=== PATIENT | female | born 1950 | race Caucasian/White ===

== ENCOUNTER 2023-03-21 19:32 | Emergency (ER) | payer OTHER, SELFPAY ==
--- NOTE | ~2023-03-21 | CT_ITS ---
EXAMINATION: CT brain wo con DATE: 03/21/2023 19:59 INDICATION: Status post fall. Head injury. TECHNIQUE: Computed tomography (CT) of the head was performed without intravenous contrast. The dose- length product was 605.33 mGy-cm. Automated exposure control and iterative reconstruction technique w ere employed. COMPARISON: None FINDINGS: Brain parenchymal volume is normal for age. There are scattered mild periventricular and garza bcortical white matter changes, most likely related to small vessel ischemic disease (microangiopathy ). No ventriculomegaly or midline shift. There is intracranial atherosclerosis. Paranasal sinuses and mastoids are pneumatized. No depressed skull fractures. No acute infarction, hemorrhage or mass. IMPRESSION: 1. No acute intracranial abnormality. Reviewed, dictated and finalized at location A.
--- NOTE | ~2023-03-21 | CT_ITS ---
EXAMINATION: CT cervical spine wo con DATE: 03/21/2023 19:59 INDICATION: Neck pain after fall TECHNIQUE: Computed tomography (CT) of the cervical spine was performed without intravenous contrast. The dose-length product was 577 mGy-cm. Automated exposure control and iterative reconstruction tech nique were employed. COMPARISON: None FINDINGS: There is straightening of cervical lordosis. There is disc narrowing at all cervical spine levels. Craniovertebral junction is normal. Odontoid process within normal limits. No evidence for pe rched facet. There is multilevel uncinate and facet hypertrophy. Lung apices are unremarkable. There is intracranial atherosclerosis. No significant paraspinal soft tissue abnormality. IMPRESSION: 1. No acute abnormality of the cervical spine. 2: Severe cervical spondylosis. Reviewed, dictated and finalized at location A.
[2023-03-21 19:33] VITALS: BP 173/80; PULSE 68; RESP 16; TEMP 36.2; O2SAT 98
[2023-03-22 01:50] VITALS: BP 164/97; PULSE 62; RESP 18; O2SAT 99
--- NOTE | 2023-03-22 03:16 | ED.GENADULT ---
HPI - General Adult General Chief complaint: Head Injury Stated complaint: fall/head injury Time Seen by Provider: 03/22/23 01:47 History of Present Illness HPI narrative: This is a 72-year-old female presenting after a fall. Patient was at a house trying to buy a porcelain rooster from someone on [employer] roberth placed. She then tripped over a step and struck her forehead. She sustained a laceration to her forehead. She did not lose consciousness. She does not take blood thinners. She has not had any persistent vomiting or numbness tingling weakness down the extremity. Unknown last Tdap. Exam Narrative: APPEARANCE: No apparent distress. Head: 3 cm laceration to the right side of the forehead EYES: EOMI, NOSE: Atraumatic NECK: Trachea midline RESPIRATORY: No increased rate of breathing CARDIOVASCULAR: RRR, ABDOMINAL: Non-distended MUSCULOSKELETAl: No obvious deformities NEURO: Alert. Cranial nerves 2-12 grossly intact. Sensation light touch, motor function cerebellar function intact for 4 extremities. Gait exam was normal. SKIN:: Warm, dry. Normal color PSYCHIATRIC: Normal affect Course Vital Signs Vital signs: Vital Signs Temperature 97.1 F L 03/21/23 19:33 Pulse Rate 68 03/21/23 19:33 Respiratory Rate 16 03/21/23 19:33 Blood Pressure 173/80 H 03/21/23 19:33 Pulse Oximetry 98 03/21/23 19:33 Temperature 97.1 F L 03/21/23 19:33 Pulse Rate 62 03/22/23 01:50 Respiratory Rate 18 03/22/23 01:50 Blood Pressure 164/97 H 03/22/23 01:50 Pulse Oximetry 99 03/22/23 01:50 Procedures Laceration Laceration 1: Date: 03/22/23 Site: face Side (If applicable): right Size (cm): 3 Description: linear Depth: simple, single layer Local Anesthetic: bupivacaine 0.25% Amount of anesthesia used (mL): 5 Pre-repair: wound explored and irrigated ====== Skin Level ====== Skin layer closed with: prolene Size (cm): 5-0 Number of sutures: 8 Technique: simple, interrupted ====== Subcutaneous Layer ====== ====== Muscle Layer ====== ====== Tendon Layer ====== Medical Decision Making MDM Narrative Medical decision making narrative: -Course: 72-year-old female presenting after a mechanical fall. CT of the head and C-spine negative for acute injury. Laceration was repaired. Patient discharged with instructions return in 5 days for suture removal. -DDX includes but is not limited to: forehead laceration, intracranial hemorrhage, concussion, C-spine injury -Co-morbidities complicating care: depression, fibromyalgia, rheumatoid arthritis -Social determinants of health: retired teacher, lives alone -Independent interpretation of studies: CT head and C-spine negative for traumatic injury -Procedures: 3 cm laceration repair -Interventions: Tdap -Shared decision making / Disposition: discharge Vital Signs Vital Signs: Vital Signs Temperature 97.1 F L 03/21/23 19:33 Pulse Rate 68 03/21/23 19:33 Respiratory Rate 16 03/21/23 19:33 Blood Pressure 173/80 H 03/21/23 19:33 Pulse Oximetry 98 03/21/23 19:33 Temperature 97.1 F L 03/21/23 19:33 Pulse Rate 62 03/22/23 01:50 Respiratory Rate 18 03/22/23 01:50 Blood Pressure 164/97 H 03/22/23 01:50 Pulse Oximetry 99 03/22/23 01:50 Discharge Plan Discharge Clinical Impression: Closed head injury, Laceration Patient Disposition: Home, Self-Care Condition: Stable Instructions: Antibiotic Form, Care For Your Stitches (DC), Concussion (ED) Additional Instructions: You were was seen in the emergency department for a forehead laceration. Please return to a medical professional in 5 days to have the sutures removed. If you develop altered mental status, persistent nausea vomiting or numbness/tingling/weakness please return to the emergency department. Follow-up/Referrals: PHYSICIAN NOT ON STAFF,N
[2023-03-22] MEDS: TETANUS,DIPHTHERIA,AC PERTUSSIS ADULT (0.5 ML) BOOSTRIX IM (03:20)
[2023-03-22] MEDS: ACETAMINOPHEN 500 MG TABLET 1000 MG PO (03:21)
[2023-03-22 03:36] VITALS: BP 154/86; PULSE 79; RESP 18; O2SAT 98
== END 2023-03-22 03:37 | disposition home or self-care (01) ==
PROVIDERS: Emergency Provider Emergency Medicine
DX: S01.81XA Laceration without foreign body of other part of head, initial encounter (principal); Z23 Encounter for immunization; W01.0XXA Fall on same level from slipping, tripping and stumbling without subsequent striking against object, initial encounter
CPT/HCPCS: 12013; 70450; 72125; 90471; 90715; 99284; A9270